=== PATIENT | male | born 1960 | race Caucasian/White ===

== ENCOUNTER 2017-12-11 07:49 | Day surgery (SDC) | payer OTHER ==
[~2017-12-11] VITALS: Ht 172.7 cm; Wt 72.6 kg
[~2017-12-11 07:49] MED LIST: BUPRENORPHINE HC8 MG SL
[2017-12-11 08:09] VITALS: BP 173/90
[2017-12-11 08:11] VITALS: BP 173/90
[2017-12-11 11:07] VITALS: BP 154/94
[2017-12-11 11:36] VITALS: BP 155/895
== END 2017-12-11 11:40 | disposition home or self-care (01) ==
LOC: SDC 07:49
DX: T85.22XA Displacement of intraocular lens, initial encounter (principal); H43.02 Vitreous prolapse, left eye
CPT/HCPCS: J0690; J1100; J2250; J2795